=== PATIENT | female | born 1965 | race Caucasian/White ===

== ENCOUNTER → 2017-01-30 | Outpatient (CLI) | payer OTHER ==
[~2017-01-30] MED LIST: ATIVAN0.5 MG PO; CEFZIL500 MG PO; CIPROFLOXACIN500 MG PO; CLARITIN10 MG PO; CLINDAMYCIN HC300 MG PO; COMBIVENT1 ARO IH; DARVOCET N 1001 TAB PO; FLONASE 0.05% 121 EA NAS; HYDROCODONE BIT1 T11 PO; HYDROCODONE BIT1 T30 PO; Hydrocodone/Ace1 TA1 PO; LEVOFLOXACIN500 MG PO; NKHM; PHENERGAN25 M1 PO; PREDNICOT20 MG PO; ROBITUSSIN AC 110 ML PO; ULTRAM50 MG PO; VICODIN ES 7501 TAB PO; ZANTAC 150150 MG PO
== END | disposition home or self-care (01) ==
LOC: US 16:15
DX: M79.604 Pain in right leg (principal)

== ENCOUNTER 2017-02-25 11:42 | Emergency (ER) | payer OTHER ==
[~2017-02-25] VITALS: Ht 165.1 cm; Wt 78.5 kg
[2017-02-25] MEDS ORDERED: PREDNISONE10 MG PO (12:06)
== END 2017-02-25 12:18 | disposition home or self-care (01) ==
LOC: ED 11:42
DX: M79.671 Pain in right foot (principal); R03.0 Elevated blood-pressure reading, without diagnosis of hypertension; F17.210 Nicotine dependence, cigarettes, uncomplicated; F41.9 Anxiety disorder, unspecified; J45.909 Unspecified asthma, uncomplicated; Z90.49 Acquired absence of other specified parts of digestive tract; Z88.0 Allergy status to penicillin; Z88.1 Allergy status to other antibiotic agents; Z88.6 Allergy status to analgesic agent; Z88.8 Allergy status to other drugs, medicaments and biological substances

== ENCOUNTER → 2017-04-13 | Outpatient (CLI) | payer OTHER ==
[~2017-04-13] MED LIST changes: +PREDNISONE10 MG PO
== END | disposition home or self-care (01) ==
LOC: CT 09:32
DX: R10.12 Left upper quadrant pain (principal); R11.0 Nausea; Z90.710 Acquired absence of both cervix and uterus

== ENCOUNTER → 2017-05-16 | Day surgery (SDC) | payer OTHER ==
[~2017-05-16] VITALS: Ht 165.1 cm; Wt 79.8 kg
[~2017-05-16] MED LIST changes: +BENADRYL ALLERG25 M5 PO; +ROBAFEN DM 10120 ML PO
--- NOTE | ~2017-05-16 | O ---
[place], [place] OPERATIVE NOTE NAME: AGATHA GALINDO UNIT #: [id number] ROOM: DOCTOR: CLIFTON FLYNN MD BIRTHDATE: [birth year] DOS: 05/16/2017 GASTROENDOSCOPIC REPORT HISTORY OF PRESENT ILLNESS: A 51-year-old patient who has presented with chief complaint of abdominal pain with radiation to the back, left lower quadrant pain, constipation. ALLERGIES: PENICILLIN, ERYTHROMYCIN, CLINDAMYCIN. FAMILY HISTORY: Noncontributory. PAST SURGICAL HISTORY: Hysterectomy, tonsillectomy, tubal ligation, appendectomy. PAST MEDICAL HISTORY: Pain Clinic, on hydrocodone for past 2 years for neck pain. SOCIAL HISTORY: Smoker. Social alcohol consumer. PROCEDURE: Today's procedure part of investigation is colonoscopy. PREMEDICATION: Versed and Diprivan. SCOPE: Olympus forward-viewing colonoscope 10L video. REPORT: After putting the patient in the left lateral position and after application of lubricant to rectal pouch and digital examination, scope was introduced. Thereafter, under direct visualization, I advanced through the length of colon without difficulty. Colon mucosa and vascularity carefully examined. Base of the cecum explored, appendiceal orifice identified, and ileocecal valve defined. Evidence of melanosis coli throughout the length of the entire colon was identified, photographed. Biopsy was obtained to document the presence of melanosis coli and laxative dependency and the patient was gradually extubated after photographic and biopsy series and tolerated the procedure well. IMPRESSION: Melanosis coli, status post biopsy. The patient advised to consume more vegetables and fruits, reduce intake of laxatives which she is dependent on because of the hydrocodone that she is consuming for neck and back pain. I have reviewed the CT scan of her abdomen, date of exam 04/13/2017. Last pelvic, no thickening or obstruction or pathology has been reported. No acute process in summary has been reported. No lesions in the lungs, kidneys. Gallbladder without stones. PLAN AND DISCUSSION: High fiber diet. Further adjustments as outpatient. FINAL DIAGNOSIS: Melanosis coli. Thank you very much indeed for your kind referral. [place], [place] OPERATIVE NOTE NAME: AGATHA GALINDO UNIT #: [id number] ROOM: DOCTOR: [facility] B[facility]: [birth year] CLIFTON FLYNN MD CM:WANDA:OPERATIVE NOTE 4 CLIFTON FLYNN MD 05/16/17 0959 interface
[2017-05-16 07:23] VITALS: BP 133/87
[2017-05-16 07:54] VITALS: BP 98/60
[2017-05-16 08:09] VITALS: BP 108/66
[2017-05-16 08:24] VITALS: BP 101/77
== END | disposition home or self-care (01) ==
LOC: SDC 05-10 09:30
DX: K63.89 Other specified diseases of intestine (principal); F17.210 Nicotine dependence, cigarettes, uncomplicated; M54.2 Cervicalgia; Z88.1 Allergy status to other antibiotic agents; Z90.710 Acquired absence of both cervix and uterus; Z88.0 Allergy status to penicillin; Z98.51 Tubal ligation status; Z98.890 Other specified postprocedural states; Z79.891 Long term (current) use of opiate analgesic; Z90.49 Acquired absence of other specified parts of digestive tract

== ENCOUNTER → 2017-07-05 | Outpatient (CLI) | payer OTHER | END | disposition home or self-care (01) | LOC: MAMMO 07-03 12:00 | DX: N63 Unspecified lump in breast (principal); R92.2 Inconclusive mammogram ==

== ENCOUNTER → 2017-07-13 | Day surgery (SDC) | payer OTHER ==
[~2017-07-13] VITALS: Ht 165.1 cm; Wt 79.8 kg
[~2017-07-13] MED LIST changes: +PRILOSEC20 M1 PO
--- NOTE | ~2017-07-13 | O ---
[place], [place] OPERATIVE NOTE NAME: AGATHA GALINDO UNIT #: [id number] ROOM: DOCTOR: CLIFTON FLYNN MD BIRTHDATE: [birth year] DOS: GASTRO-ENDOSCOPIC REPORT HISTORY OF PRESENT ILLNESS: A 51-year-old gentleman who has presented with chief complaint of dysphagia, undergoing investigation. PAST MEDICAL HISTORY: Degenerative joint disease, chronic lower back pain, anxiety. PAST SURGICAL HISTORY: Tubal ligation, tonsillectomy, appendectomy, ganglion cyst, hysterectomy. ALLERGIES: To MULTIPLE MEDICATIONS. PROCEDURE: Today's procedure part of investigation is panendoscopy plus balloon dilation of esophagus plus biopsy of gastric pouch. PREMEDICATION: Versed and Diprivan. SCOPE: Olympus forward-viewing gastroscope Q10 video. REPORT: After putting the patient in the left lateral position and after application of lubricant to the scope, the scope was introduced. Thereafter, under direct visualization, I advanced through the length of esophagus without difficulty. A distal esophageal stricture was dilated with balloon to size 18. Gastric pouch was entered. Gastritis seen. Duodenal bulb, second and third part within normal limits. Antral biopsy was obtained. The patient was gradually extubated and tolerated the procedure well. IMPRESSION: Esophageal stricture, status post balloon dilation, hiatal hernia approximately 2.5 cm. Gastritis and the presence of some degraded blood in the gastric pouch. PLAN AND DISCUSSION: We will switch patient from Zantac twice a day to Omeprazole 40 mg daily, antireflux measures, elevation of the head of the bed 6 inches all time and Gaviscon as antacid of choice. A routine followup with you in office p.r.n., visit with us in GI Clinic. Thank you very much indeed for your kind referral. [place], [place] OPERATIVE NOTE NAME: AGATHA GALINDO JOAQUINA UNIT #: [id number] ROOM: DOCTOR: CLIFTON FLYNN MD BIRTHDATE: [birth year] CLIFTON FLYNN MD CM:OPRECORD:OPERATIVE NOTE [id number] TRUPTI FLYNN MD (TED) 07/13/17 1719 interface
[2017-07-13 13:58] VITALS: BP 133/89
[2017-07-13 15:00] VITALS: BP 100/61
[2017-07-13 15:15] VITALS: BP 97/41
[2017-07-13 15:30] VITALS: BP 111/70
== END | disposition home or self-care (01) ==
LOC: SDC 07-10 12:30
DX: K22.2 Esophageal obstruction (principal); K29.50 Unspecified chronic gastritis without bleeding; K44.9 Diaphragmatic hernia without obstruction or gangrene; F41.9 Anxiety disorder, unspecified; M19.90 Unspecified osteoarthritis, unspecified site; Z98.51 Tubal ligation status; J45.909 Unspecified asthma, uncomplicated; Z90.710 Acquired absence of both cervix and uterus; K21.9 Gastro-esophageal reflux disease without esophagitis; Z98.890 Other specified postprocedural states; F17.210 Nicotine dependence, cigarettes, uncomplicated

== ENCOUNTER → 2017-11-10 | Outpatient (CLI) | payer OTHER ==
[2017-11-10 10:48] LABS: BASO # 0.1 10*3/uL (0.0-0.1); BASO % 0.6 % (0.0-1.0); EOS # 0.3 10*3/uL (0.0-0.4); HEMATOCRIT 44.4 % (37.0-47.0); HEMOGLOBIN 15.4 g/dl (12.0-16.0); LYMPH # 1.7 10*3/uL (1.3-4.4); LYMPH % 21.9 % (27.0-41.0); MEAN CELL VOLUME 90.2 fl (81.0-99.0); MEAN CORPUSCULAR HGB 31.3 pg (27.0-31.0); MEAN CORPUSCULAR HGB CONC 34.7 g/dl (33.0-37.0); MEAN PLATELET VOLUME 9.3 fl (9.6-12.3); MONO # 0.5 10*3/uL (0.1-1.0); MONO % 6.6 % (3.0-9.0); NEUT # 5.1 10*3/uL (2.3-7.9); NEUT % 66.6 % (47.0-73.0); PLATELET COUNT AUTOMATED 197 10*3/uL (130-400); RED BLOOD COUNT 4.92 10*6/uL (4.10-5.10); RED CELL DISTRI WIDTH 12.8 % (0-14.5); WHITE BLOOD COUNT 7.7 10*3/uL (4.8-10.8)
[2017-11-10 11:33] LABS: ALBUMIN 3.4 gm/dl (3.1-4.5); ALKALINE PHOSPHATASE 110 U/L (45-117); BILIRUBIN, DIRECT < 0.1 mg/dL (0.0-0.2); BUN 14 mg/dl (7-24); CHLORIDE 104 mmol/L (98-107); CREATININE 0.76 mg/dL (0.55-1.02); LIPASE 154 U/L (73-393); POTASSIUM 4.2 mmol/L (3.5-5.1); SGOT/AST 18 IU/L (3-35); SGPT/ALT 29 U/L (12-78); SODIUM 138 mmol/L (136-145); TOTAL PROTEIN 7.2 gm/dL (6.4-8.2)
[2017-11-10 11:34] LABS: THYROXINE (T4) TOTAL 9.4 ug/dl (4.8-13.9)
== END | disposition home or self-care (01) ==
LOC: LAB 09:51
PROVIDERS: Internal Medicine Gastroenterology
DX: K59.00 Constipation, unspecified (principal); R10.9 Unspecified abdominal pain; R63.5 Abnormal weight gain

== ENCOUNTER → 2018-01-22 | Outpatient (CLI) | payer OTHER ==
[~2018-01-22] MED LIST changes: +VITAMIN D-32000 UNIT PO
[2018-01-22 12:06] LABS: BASO # 0.1 10*3/uL (0.0-0.1); BASO % 0.6 % (0.0-1.0); EOS # 0.4 10*3/uL (0.0-0.4); EOS % 3.9 % (1.0-4.0); HEMATOCRIT 49.2 % (37.0-47.0); LYMPH # 2.4 10*3/uL (1.3-4.4); LYMPH % 22.3 % (27.0-41.0); MEAN CELL VOLUME 92.8 fl (81.0-99.0); MEAN CORPUSCULAR HGB 30.2 pg (27.0-31.0); MEAN CORPUSCULAR HGB CONC 32.5 g/dl (33.0-37.0); MEAN PLATELET VOLUME 9.5 fl (9.6-12.3); MONO # 0.6 10*3/uL (0.1-1.0); MONO % 5.4 % (3.0-9.0); NEUT # 7.1 10*3/uL (2.3-7.9); NEUT % 67.6 % (47.0-73.0); PLATELET COUNT AUTOMATED 235 10*3/uL (130-400); RED CELL DISTRI WIDTH 12.8 % (0-14.5); WHITE BLOOD COUNT 10.5 10*3/uL (4.8-10.8)
[2018-01-22 12:19] LABS: ALBUMIN 3.8 gm/dl (3.1-4.5); ALKALINE PHOSPHATASE 99 U/L (45-117); BUN 13 mg/dl (7-24); CHLORIDE 105 mmol/L (98-107); CREATININE 0.81 mg/dL (0.55-1.02); POTASSIUM 4.8 mmol/L (3.5-5.1); SGOT/AST 15 IU/L (3-35); SGPT/ALT 25 U/L (12-78); SODIUM 137 mmol/L (136-145); TOTAL PROTEIN 7.4 gm/dL (6.4-8.2)
[2018-01-22 12:20] LABS: BILIRUBIN, DIRECT < 0.1 mg/dL (0.0-0.2)
== END | disposition home or self-care (01) ==
LOC: LAB 11:24
PROVIDERS: Family Medicine
DX: M16.12 Unilateral primary osteoarthritis, left hip (principal); M25.572 Pain in left ankle and joints of left foot; M54.5 Low back pain

== ENCOUNTER → 2018-12-19 | Outpatient (CLI) | payer OTHER | END | disposition home or self-care (01) | LOC: RAD 11:40 | DX: M53.3 Sacrococcygeal disorders, not elsewhere classified (principal) ==

== ENCOUNTER → 2019-07-16 | Outpatient (CLI) | payer OTHER ==
[2019-07-16 12:11] LABS: BASO # 0.1 10*3/uL (0.0-0.1); BASO % 0.7 % (0.0-1.0); EOS # 0.3 10*3/uL (0.0-0.4); EOS % 3.1 % (1.0-4.0); HEMATOCRIT 46.5 % (37.0-47.0); HEMOGLOBIN 15.6 g/dl (12.0-16.0); LYMPH # 2.3 10*3/uL (1.3-4.4); LYMPH % 28.5 % (27.0-41.0); MEAN CORPUSCULAR HGB 31.2 pg (27.0-31.0); MEAN CORPUSCULAR HGB CONC 33.5 g/dl (33.0-37.0); MONO # 0.5 10*3/uL (0.1-1.0); MONO % 5.7 % (3.0-9.0); NEUT % 61.9 % (47.0-73.0); PLATELET COUNT AUTOMATED 229 10*3/uL (130-400); RED CELL DISTRI WIDTH 13.2 % (0-14.5)
[2019-07-16 12:47] LABS: BILIRUBIN, DIRECT < 0.1 mg/dL (0.0-0.2); BUN 9 mg/dl (7-24); CHLORIDE 104 mmol/L (98-107); POTASSIUM 4.2 mmol/L (3.5-5.1); SODIUM 138 mmol/L (136-145)
[2019-07-16 12:56] LABS: ALBUMIN 3.6 gm/dl (3.1-4.5); ALKALINE PHOSPHATASE 102 U/L (45-117); CHOLESTEROL 294 mg/dL (<200); CREATININE 0.74 mg/dL (0.55-1.02); HDL CHOLESTEROL 64 mg/dl (40-60); LDL CHOLESTEROL 198 mg/dL (9-159); SGOT/AST 19 IU/L (3-35); SGPT/ALT 30 U/L (12-78); THYROXINE (T4) TOTAL 8.3 ug/dl (4.8-13.9); TOTAL PROTEIN 7.1 gm/dL (6.4-8.2); TRIGLYCERIDES 160 mg/dl (<150); VLDL CHOLESTEROL 32 mg/dL (6-40)
== END | disposition home or self-care (01) ==
LOC: LAB 11:46
PROVIDERS: Family Medicine
DX: M54.2 Cervicalgia (principal); E55.9 Vitamin D deficiency, unspecified; R79.82 Elevated C-reactive protein (CRP)

== ENCOUNTER 2020-11-24 10:57 | Emergency (ER) | payer SELFPAY ==
[~2020-11-24] VITALS: Ht 167.6 cm; Wt 70.3 kg
[2020-11-24 11:41] LABS: BILIRUBIN Negative (Negative); BLOOD 2+ (Negative); CLARITY Clear (Clear); COLOR Yellow (Yellow); GLUCOSE Negative (Negative); KETONE Trace (Negative); LEUKO ESTERASE Negative (Negative); NITRITE Negative (Negative); SPECIFIC GRAVITY >= 1.030 (1.001-1.030)
[2020-11-24 11:42] LABS: BASO % 0.3 % (0.0-1.0); EOS # 0.2 10*3/uL (0.0-0.4); EOS % 2.6 % (1.0-4.0); HEMATOCRIT 46.6 % (37.0-47.0); LYMPH # 2.5 10*3/uL (1.3-4.4); LYMPH % 27.8 % (27.0-41.0); MEAN CORPUSCULAR HGB 29.7 pg (27.0-31.0); MEAN PLATELET VOLUME 9.1 fl (9.6-12.3); MONO # 0.5 10*3/uL (0.1-1.0); MONO % 5.8 % (3.0-9.0); NEUT # 5.6 10*3/uL (2.3-7.9); NEUT % 63.4 % (47.0-73.0); PLATELET COUNT AUTOMATED 260 10*3/uL (130-400); RED BLOOD COUNT 5.18 10*6/uL (4.10-5.10); RED CELL DISTRI WIDTH 12.5 % (0-14.5); WHITE BLOOD COUNT 8.8 10*3/uL (4.8-10.8)
[2020-11-24 11:50] LABS: MUCOUS 1+; RBC 16-20 rbc/hpf (0-2)
[2020-11-24 11:59] LABS: ALBUMIN 3.7 gm/dl (3.1-4.5); ALKALINE PHOSPHATASE 132 U/L (45-117); BUN 17 mg/dl (7-24); CHLORIDE 105 mmol/L (98-107); CREATININE 0.83 mg/dL (0.55-1.02); LIPASE 124 U/L (73-393); POTASSIUM 3.7 mmol/L (3.5-5.1); SGOT/AST 42 IU/L (3-35); SGPT/ALT 73 U/L (12-78); SODIUM 137 mmol/L (136-145); TOTAL PROTEIN 7.4 gm/dL (6.4-8.2)
[2020-11-24] MEDS ORDERED: DICYCLOMINE HCL10 MG PO (13:45)
== END 2020-11-24 14:05 | disposition home or self-care (01) ==
LOC: ED 10:57
PROVIDERS: Physician Assistant
DX: R10.10 Upper abdominal pain, unspecified (principal); F17.210 Nicotine dependence, cigarettes, uncomplicated; Z90.710 Acquired absence of both cervix and uterus; Z90.89 Acquired absence of other organs; Z79.899 Other long term (current) drug therapy; Z88.6 Allergy status to analgesic agent; Z88.1 Allergy status to other antibiotic agents; Z88.8 Allergy status to other drugs, medicaments and biological substances; Z88.5 Allergy status to narcotic agent

== ENCOUNTER → 2020-11-27 | Outpatient (CLI) | payer SELFPAY ==
[~2020-11-27] MED LIST changes: +DICYCLOMINE HCL10 MG PO; +PREDNISONE50 MG PO; +PROVENTIL HFA6.7 GM INH
[2020-11-27 13:16] LABS: THYROXINE (T4) TOTAL 8.9 ug/dl (4.8-13.9)
[2020-11-27 13:21] LABS: THYROID STIM HORMONE (HS) 2.08 uIU/ml (0.358-4.75)
== END | disposition home or self-care (01) ==
LOC: LAB 12:08
PROVIDERS: ATTEND Family Medicine
DX: E03.9 Hypothyroidism, unspecified (principal); E78.00 Pure hypercholesterolemia, unspecified

== ENCOUNTER 2020-12-29 12:42 | Emergency (ER) | payer SELFPAY ==
[~2020-12-29] VITALS: Wt 79.8 kg
[~2020-12-29 12:42] MED LIST changes: -PREDNISONE50 MG PO; -PROVENTIL HFA6.7 GM INH
[2020-12-29 13:32] LABS: BASO % 0.5 % (0.0-1.0); EOS # 0.3 10*3/uL (0.0-0.4); EOS % 2.8 % (1.0-4.0); HEMATOCRIT 43.5 % (37.0-47.0); LYMPH # 1.5 10*3/uL (1.3-4.4); LYMPH % 16.5 % (27.0-41.0); MEAN CELL VOLUME 90.4 fl (81.0-99.0); MEAN CORPUSCULAR HGB 29.9 pg (27.0-31.0); MEAN CORPUSCULAR HGB CONC 33.1 g/dl (33.0-37.0); MEAN PLATELET VOLUME 9.1 fl (9.6-12.3); MONO # 0.6 10*3/uL (0.1-1.0); MONO % 6.7 % (3.0-9.0); NEUT # 6.4 10*3/uL (2.3-7.9); NEUT % 73.3 % (47.0-73.0); PLATELET COUNT AUTOMATED 220 10*3/uL (130-400); RED BLOOD COUNT 4.81 10*6/uL (4.10-5.10); RED CELL DISTRI WIDTH 12.8 % (0-14.5); WHITE BLOOD COUNT 8.8 10*3/uL (4.8-10.8)
[2020-12-29 13:37] LABS: BILIRUBIN Negative (Negative); BLOOD 1+ (Negative); CLARITY Clear (Clear); COLOR Yellow (Yellow); GLUCOSE Negative (Negative); KETONE Negative (Negative); LEUKO ESTERASE Negative (Negative); NITRITE Negative (Negative); PH 5.5 (4.5-8.0); UROBILINOGEN 0.2 E.U./dl (0.0-1.0)
[2020-12-29 13:43] LABS: ACT PARTIAL THROMBO TIME 30.1 SECONDS (20.0-32.1); INTERNATIONAL NORM RATIO 0.9 (2.0-3.5)
[2020-12-29 13:45] LABS: RBC 16-20 rbc/hpf (0-2); WBC 0-2 wbc/hpf (0-5)
[2020-12-29 13:48] LABS: ALBUMIN 3.7 gm/dl (3.1-4.5); ALKALINE PHOSPHATASE 110 U/L (45-117); BUN 8 mg/dl (7-24); CHLORIDE 104 mmol/L (98-107); CREATININE 0.73 mg/dL (0.55-1.02); POTASSIUM 3.9 mmol/L (3.5-5.1); SGOT/AST 22 IU/L (3-35); SGPT/ALT 30 U/L (12-78); SODIUM 137 mmol/L (136-145); TOTAL PROTEIN 7.5 gm/dL (6.4-8.2); TROPONIN I < 0.015 ng/ml (<0.045)
[2020-12-29] MEDS ORDERED: PROVENTIL HFA6.7 GM INH (14:23)
[2020-12-29] MEDS ORDERED: PREDNISONE50 MG PO (14:23)
== END 2020-12-29 14:48 | disposition home or self-care (01) ==
LOC: ED 12:42
PROVIDERS: Emergency Medicine
DX: J20.9 Acute bronchitis, unspecified (principal); F41.9 Anxiety disorder, unspecified; J45.909 Unspecified asthma, uncomplicated; E78.00 Pure hypercholesterolemia, unspecified; F17.210 Nicotine dependence, cigarettes, uncomplicated; Z20.822 Contact with and (suspected) exposure to COVID-19; Z88.8 Allergy status to other drugs, medicaments and biological substances; Z88.6 Allergy status to analgesic agent; Z88.0 Allergy status to penicillin; Z79.899 Other long term (current) drug therapy; Z90.711 Acquired absence of uterus with remaining cervical stump; Z90.49 Acquired absence of other specified parts of digestive tract; Z98.890 Other specified postprocedural states

== ENCOUNTER → 2024-03-06 | Outpatient (CLI) | payer SELFPAY ==
[~2024-03-06] MED LIST changes: +PREDNISONE50 MG PO; +PROVENTIL HFA6.7 GM INH
[2024-03-06 11:26] LABS: BASO # 0.1 10*3/uL (0.0-0.1); BASO % 0.6 % (0.0-1.0); EOS # 0.3 10*3/uL (0.0-0.4); EOS % 3.5 % (1.0-4.0); HEMATOCRIT 44.3 % (37.0-47.0); LYMPH # 2.6 10*3/uL (1.3-4.4); LYMPH % 30.9 % (27.0-41.0); MEAN CELL VOLUME 91.7 fl (81.0-99.0); MEAN CORPUSCULAR HGB CONC 32.7 g/dl (33.0-37.0); MONO # 0.5 10*3/uL (0.1-1.0); MONO % 6.2 % (3.0-9.0); NEUT # 4.9 10*3/uL (2.3-7.9); NEUT % 58.6 % (47.0-73.0); PLATELET COUNT AUTOMATED 235 10*3/uL (130-400); RED BLOOD COUNT 4.83 10*6/uL (4.10-5.10); RED CELL DISTRI WIDTH 13.2 % (0-14.5); WHITE BLOOD COUNT 8.4 10*3/uL (4.8-10.8)
[2024-03-06 12:27] LABS: ALKALINE PHOSPHATASE 94 U/L (46-116); BUN 11 mg/dl (9-23); CHLORIDE 107 mmol/L (98-107); CHOLESTEROL 280 mg/dL (<200); LDL CHOLESTEROL 188 mg/dL (9-159); POTASSIUM 4.4 mmol/L (3.4-5.1); SGPT/ALT 10 U/L (5-49); THYROXINE (T4) TOTAL 7.5 ug/dl (4.5-10.9); TOTAL PROTEIN 6.8 gm/dL (6.0-8.0); TRIGLYCERIDES 165 mg/dl (<150)
[2024-03-06 12:33] LABS: VITAMIN D, 25-HYDROXY 42.1 ng/mL (30-100)
== END | disposition home or self-care (01) ==
LOC: LAB 10:24
PROVIDERS: ATTEND Family Medicine
DX: Z51.81 Encounter for therapeutic drug level monitoring (principal); E55.9 Vitamin D deficiency, unspecified; K21.9 Gastro-esophageal reflux disease without esophagitis; G89.29 Other chronic pain

== ENCOUNTER → 2024-03-25 | Outpatient (CLI) | payer SELFPAY | END | disposition home or self-care (01) | LOC: MAMMO 15:55 | PROVIDERS: ATTEND Family Medicine | DX: Z12.31 Encounter for screening mammogram for malignant neoplasm of breast (principal); N63.22 Unspecified lump in the left breast, upper inner quadrant ==

== ENCOUNTER 2024-12-15 07:35 | Emergency (ER) | payer SELFPAY ==
[~2024-12-15] VITALS: Ht 165.1 cm; Wt 78.9 kg
[2024-12-15] MEDS ORDERED: MONTELUKAST SOD10 MG PO (07:46)
[2024-12-15] MEDS ORDERED: LISSAMINE GREEN 1.5 MG STRIP OP ONE (07:50)
[2024-12-15] MEDS ORDERED: Tetracaine Hydrochloride 0.5% 4 ML BOT OPH ONE (07:50)
[2024-12-15] MEDS ORDERED: IOHEXOL 350 MG/ML 100 ML VIAL IV ONE (08:40)
[2024-12-15] MEDS ORDERED: SODIUM CHLORIDE 0.9% 100 ML BAG IV ONE (08:40)
[2024-12-15 08:54] LABS: BASO % 0.6 % (0.0-1.0); EOS # 0.2 10*3/uL (0.0-0.4); HEMATOCRIT 44.4 % (37.0-47.0); MEAN CELL VOLUME 92.1 fl (81.0-99.0); MEAN CORPUSCULAR HGB 29.5 pg (27.0-31.0); MEAN PLATELET VOLUME 8.7 fl (9.6-12.3); MONO # 0.4 10*3/uL (0.1-1.0); MONO % 6.3 % (3.0-9.0); NEUT # 4.6 10*3/uL (2.3-7.9); NEUT % 68.4 % (47.0-73.0); PLATELET COUNT AUTOMATED 218 10*3/uL (130-400); RED BLOOD COUNT 4.82 10*6/uL (4.10-5.10); RED CELL DISTRI WIDTH 13.4 % (0-14.5); WHITE BLOOD COUNT 6.7 10*3/uL (4.8-10.8)
[2024-12-15 09:14] LABS: ALKALINE PHOSPHATASE 81 U/L (46-116); BUN 9 mg/dl (9-23); CHLORIDE 106 mmol/L (98-107); POTASSIUM 4.4 mmol/L (3.4-5.1); SGPT/ALT 17 U/L (5-49); TOTAL PROTEIN 6.5 gm/dL (6.0-8.0)
[2024-12-15 10:05] LABS: BILIRUBIN Negative (Negative); BLOOD Trace-Lysed (Negative); CLARITY Clear (Clear); COLOR Yellow (Yellow); GLUCOSE Negative (Negative); KETONE Negative (Negative); LEUKO ESTERASE Negative (Negative); NITRITE Negative (Negative); PH 7.5 (4.5-8.0); SPECIFIC GRAVITY >= 1.030 (1.001-1.030); UROBILINOGEN 0.2 E.U./dl (0.0-1.0)
[2024-12-15 10:12] LABS: URINE AMPHETAMINES Negative (1000ng/ml); URINE BARBITURATES Negative (200ng/ml); URINE BENZODIAZEPINES Negative (200ng/ml); URINE CANNABINOIDS (THC) Negative (50ng/ml); URINE COCAINE Negative (300ng/ml); URINE METHADONE Negative (300ng/ml); URINE OPIATES Positive (300ng/ml); URINE PHENCYCLIDINE Negative (25ng/ml)
[2024-12-15 10:20] LABS: EPITHELIAL CELLS 0-2; WBC 0-2 wbc/hpf (0-5)
== END 2024-12-15 13:47 | disposition home or self-care (01) ==
LOC: ED 07:35
PROVIDERS: Internal Medicine
DX: H53.8 Other visual disturbances (principal); I10 Essential (primary) hypertension; E78.5 Hyperlipidemia, unspecified; G43.909 Migraine, unspecified, not intractable, without status migrainosus; F41.9 Anxiety disorder, unspecified; Z79.01 Long term (current) use of anticoagulants; Z79.899 Other long term (current) drug therapy; Z88.1 Allergy status to other antibiotic agents; Z88.0 Allergy status to penicillin; Z88.8 Allergy status to other drugs, medicaments and biological substances; Z90.49 Acquired absence of other specified parts of digestive tract; Z90.710 Acquired absence of both cervix and uterus; Z90.89 Acquired absence of other organs